=== PATIENT | male | born 1970 | race Caucasian/White ===

== ENCOUNTER 2023-12-02 23:59 | Inpatient (IN) ==
[2023-12-03] MEDS ORDERED: diazePAM 5 MG/ML 10ML VIAL IV STA ×3 (00:24→05:33)
[2023-12-03] MEDS ORDERED: THIAMINE HCL 100 MG in SYRINGE 9 ML IV STA (00:24)
[2023-12-03] MEDS ORDERED: SODIUM CHLORIDE 0.9% 1,000 ML IV ONE (00:24)
[2023-12-03] MEDS ORDERED: MULTI-VITAMIN INFUSION 10 ML, THIAMINE HCL 100 MG, FOLIC ACID 1 MG in SODIUM CHLORIDE 0... IV ONE (00:24)
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
[2023-12-03 00:50] LABS: Appearance Urine Clear (Clear); Blood Urine Negative (Negative); Color Urine Orange; Glucose Urine UA Negative (Negative); Ketones Urine 1+ (Negative); Leukocyte Esterase Urine Trace (Negative); Nitrite Urine Negative (Negative); Protein Urine 2+ (Negative); Specific Gravity Urine 1.029 (1.000-1.030); Urobilinogen Urine Negative (Negative); pH Urine 5.5 (4.5-7.5)
[2023-12-03 01:10] LABS: Bilirubin Urine 1+ (Negative)
[2023-12-03 01:19] LABS: Prothrombin Time 10.9 Seconds (9.0-12.0)
[2023-12-03 01:20] LABS: Amphetamines+Metham, Urine Neg (Neg); Barbiturates, Urine Pos (Neg); Benzodiazepine, Urine Pos (Neg); Cocaine, Urine Neg (Neg); MDMA (Ecstacy), Urine Neg (Neg); Marijuana, Urine Neg (Neg); Methadone, Urine Neg (Neg); Opiate, Urine Neg (Neg); Phencyclidine, Urine Neg (Neg)
[2023-12-03 01:21] LABS: Bacteria Urine Automated Negative (Negative); Cast Urine Automated 0 /lpf (0-5); Mucus Urine Present (None Prsent); RBC Urine Automated 0-4 /hpf (0-4)
[2023-12-03 01:29] LABS: Albumin Globulin Ratio 1.3 (0.9-2); BUN Creatinine Ratio 20.3 (10-20); Creatinine Clr Calc Pharmacy 102.5 ml/min; Est GFR (African American) 120.5 ml/min; Globulin 3.4 gm/dl (2.5-4.0); Phosphorus 3.3 mg/dl (2.5-4.9); Total Protein 7.9 gm/dl (6.0-8.3)
--- NOTE | 2023-12-03 01:29 | CT Scan Report ---
Exam(s): CT HEAD Without Contrast EXAM: CT Head Without Intravenous Contrast CLINICAL HISTORY: Reason for exam: ams. TECHNIQUE: Axial computed tomography images of the head/brain without intravenous contrast. CTDI is 35.92 mGy and DLP is 625.8 mGy-cm. Automated exposure control was utilized for the study. A dose lowering technique was utilized adhering to the principles of ALARA. COMPARISON: No relevant prior studies available. FINDINGS: No acute intracranial hemorrhage. No midline shift or mass effect. The territorial humphrey-white matter differentiation is maintained throughout. Age-related cerebral volume loss. Periventricular and subcortical white matter hypoattenuation, consistent with chronic microangiopathy. The visualized orbits appear grossly unremarkable. The calvarium is intact. The visualized paranasal sinuses and mastoid air cells are grossly clear. IMPRESSION: No acute intracranial hemorrhage, midline shift, or mass effect. Electronically signed by: Thomas Paula MD 12/03/23 01:28 AM
[2023-12-03 01:30] LABS: Albumin Level 4.5 gm/dl (3.4-5.0); Bilirubin,Total 0.8 mg/dl (0.2-1.0); Calcium 9.9 mg/dl (8.6-10.3); Magnesium 1.6 mg/dl (1.7-2.4); Potassium 3.7 mmol/L (3.5-5.1); Thyroid Stimulating Hormone 3.1 uIu/ml (0.300-4.500); Troponin I High Sensitivity 6.6 pg/ml (0-20)
[2023-12-03 01:45] LABS: Basophils # (auto) 0.04 K/uL (0.00-0.20); Eosinophils # (auto) 0.04 K/uL (0.00-0.50); Hematocrit (blood only) 44.2 % (42.0-52.0); Hemoglobin 14.8 g/dl (14.0-18.0); Immature Granulocytes # (auto) 0.01 K/uL (0.01-0.20); Immature Granulocytes % (auto) 0.3 %; Lymphocytes # (auto) 0.88 K/uL (1.20-3.40); Mean Corpuscular Hemoglobin 32.6 pg (25.0-34.0); Mean Corpuscular Hgb Conc 33.5 g/dL (32.0-36.0); Mean Corpuscular Volume 97.4 fL (80.0-100.0); Mean Platelet Volume 12.4 fL (9.4-12.4); Monocytes # (auto) 0.46 K/uL (0.11-0.59); Neutrophils % (auto) 62.7 %; Platelet Count 50 K/uL (130-400); Platelet Estimate Decreased (Normal); RBC Morphology Unremarkable; RDW Coefficient of Variation 11.5 % (11.5-14.5); RDW Standard Deviation 41.9 fL (36.4-46.3); Red Blood Count 4.54 M/uL (4.70-6.10); White Blood Count 3.83 K/ul (4.8-10.8)
[2023-12-03] MEDS ORDERED: MAGNESIUM SULFATE / D5W 1 GM/100 ML BAG IV STA (01:51)
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
[2023-12-03] MEDS ORDERED: SODIUM CHLORIDE 0.9% 1,000 ML IV SCH (05:05)
[2023-12-03] MEDS ORDERED: cloNIDine HCL 0.1 MG TAB PO PRN (05:05)
[2023-12-03] MEDS ORDERED: NITROGLYCERIN SL 0.4 MG/TAB TAB SL PRN (05:05)
[2023-12-03] MEDS ORDERED: PHENobarbital sodium 130 MG/ML VIAL IM STA ×3 (05:05→09:24)
[2023-12-03] MEDS ORDERED: ALBUTEROL 0.083% NEBU SOLN 3 ML VIAL INH PRN (05:05)
[2023-12-03] MEDS ORDERED: ONDANSETRON INJ 2 MG/ML 2 ML VIAL IV PRN (05:05)
[2023-12-03] MEDS ORDERED: PHENobarbital sodium 65 MG/ML VIAL IM PRN (05:05)
[2023-12-03] MEDS ORDERED: ALBUTEROL HFA 8 GM INHALER INH PRN (05:05)
[2023-12-03] MEDS ORDERED: PHENobarbital PO Alcohol Withdrawal PO STA (05:05)
[2023-12-03] MEDS ORDERED: PHENobarbital sodium 65 MG/ML VIAL IV STA ×2 (07:50→10:45)
--- NOTE | 2023-12-03 07:58 | XRay Report ---
XR chest 1V portable HISTORY: Altered mental status COMPARISON: None. FINDINGS: The lungs are clear. The heart is normal in size. There are calcifications within the nodul e. There are old, healed bilateral rib fractures. No pleural effusions. No pneumothorax. IMPRESSION: No acute process. ACT 112: Negative or not required by law. Electronically signed by: Leopoldo Dubose M.D. 12/03/2023 7:57 AM
[2023-12-03] MEDS ORDERED: PHENobarbital sodium 130 MG/ML VIAL IM SCH (08:15)
[2023-12-03 08:25] LABS: Basophils # (auto) 0.04 K/uL (0.00-0.20); Basophils % (auto) 0.8 %; Eosinophils # (auto) 0.14 K/uL (0.00-0.50); Eosinophils % (auto) 2.9 %; Hemoglobin 14.8 g/dl (14.0-18.0); Immature Granulocytes # (auto) 0.01 K/uL (0.01-0.20); Immature Granulocytes % (auto) 0.2 %; Lymphocytes # (auto) 1.24 K/uL (1.20-3.40); Lymphocytes % (auto) 25.8 %; Mean Corpuscular Hemoglobin 32.5 pg (25.0-34.0); Mean Corpuscular Hgb Conc 32.9 g/dL (32.0-36.0); Mean Corpuscular Volume 98.9 fL (80.0-100.0); Mean Platelet Volume 12.4 fL (9.4-12.4); Monocytes % (auto) 12.5 %; Neutrophils # (auto) 2.78 K/uL (1.40-6.50); Neutrophils % (auto) 57.8 %; Platelet Count 62 K/uL (130-400); RDW Coefficient of Variation 11.7 % (11.5-14.5); RDW Standard Deviation 42.8 fL (36.4-46.3); Red Blood Count 4.55 M/uL (4.70-6.10); White Blood Count 4.81 K/ul (4.8-10.8)
[2023-12-03 08:29] LABS: BUN Creatinine Ratio 16.4 (10-20); Calcium 9.3 mg/dl (8.6-10.3); Creatinine Clr Calc Pharmacy 132.7 ml/min; Est GFR (Non-African American) 115.6 ml/min; Potassium 3.1 mmol/L (3.5-5.1)
[2023-12-03] MEDS ORDERED: LORazepam 1 MG/1 ML SYR ED Inj Use IV STA (08:58)
[2023-12-03] MEDS ORDERED: MULTIVITAMIN TAB PO SCH (09:00)
[2023-12-03] MEDS ORDERED: THIAMINE HCL 100 MG in SYRINGE 9 ML IV SCH (09:00)
[2023-12-03] MEDS ORDERED: CYANOCOBALAMIN (B-12) 500 MCG TABLET PO SCH (09:00)
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
[2023-12-03] MEDS ORDERED: MIDAZOLAM HCL 5 MG/ML 2ML VIAL IM STA (10:01)
[2023-12-03] MEDS ORDERED: KETAMINE HCL INJ 100 MG/ML 5ML VIAL ONE (10:07)
[2023-12-03] MEDS ORDERED: Nursing to Pharmacy Communication SCH (10:15)
--- NOTE | 2023-12-03 10:26 | Critical Care Consultation ---
Date of Consultation December 03, 2023 Assessment & Plan (1) Wernicke encephalopathy: Reason Critically Ill: 53-year-old male with Warnicke's encephalopathy and acute agitated delirium requiring violent restraints secondary to striking healthcare team members PLAN: Neuro: Warnicke's encephalopathy -Patient treated with thiamine and folate during October admission: Multivitamin supplementation when able to take p.o. -Phenobarbital for alcohol withdrawal Resp: End-tidal CO2 monitoring CV: Tachycardia secondary to alcohol withdrawal -Consider propranolol and possibly clonidine when able to take p.o. Fluids/Renal: Maintenance fluids half NS with 20 of K at 80 mL Hypokalemia -20 mEq supplemented ID: Afebrile GI/Nutrition: Mild transaminitis: AST 51 -Suspect secondary to alcohol use Heme: Thrombocytopenia: Clinical history is strongly suggestive of bone marrow suppression secondary to alcohol consumption -Reticulocyte count DVT prophylaxis: Subcu Lovenox, mechanical prophylaxis contraindicated as I am concerned the patient's compliance as he would attempt to get up and be a fall risk, therefore I think chemoprophylaxis is more indicated and safer Endocrine: ICU hyperglycemia protocol Vascular access: Peripheral IVs -Attempting to replace peripheral IV in the safe setting, increasing doses of sedatives, transition to ketamine intramuscular as this should have less impact on patient's respiratory function, patient still combative unsafe to attempt to place IV. Code Status: Full code Disposition: ICU Clinical update 1115: Patient has essentially been loaded with 15 mg/kg phenobarb, patient less combative still requiring ED cuffs as he is still quite impulsive I am hopeful that we can augment with dexmedetomidine and will transition to oral phenobarbital to start tomorrow. Clinical update 1830: Patient did well with Precedex not requiring additional doses of phenobarbital at this time, it appears we have achieved symptom control. Oral taper ordered to start tomorrow. (2) Alcohol abuse: (3) Alcohol withdrawal delirium: (4) Hypokalemia: Supervising Physician Co-Signing Physician Notes I have personally spent 85 minutes of critical care time in the direct management of this patient. This is a life/limb threatening event. This includes time spent evaluating patient, direct bedside care, chart review, placing orders, interpretation of diagnostic studies, discussion with consultants, patient, and/or family members regarding treatment decisions, as well as other required patient management activities. This time is exclusive of all separately billable procedures, and teaching time and separate from and in addition to any other critical care service time. History of Present Illness Reason for Consultation: Acute agitated delirium: Delirium tremens Attending Physician: Shravan Saucedo MD History of Present Illness Patient is a 53-year-old male with an extensive past medical history of alcohol withdraw. History is obtained from prior records as patient is in acute delirium tremens acutely agitated and hallucinating. He was recently transferred from [facility] for confusion and tachycardia. His admission was on November 30. Patient was recently admitted in October to [facility] and was discharged November 21 for acute alcohol withdrawal. At that time admission drug screen was positive for methamphetamines but reportedly the patient declined drug use. Noted he was treated with phenobarbital, at the discharge summary was reported to he would drink 30 cans of beer daily this is occurred since approximately 2014. During my evaluation the patient is responding to internal stimuli and acting having active hallucination. He became combative with staff both kicking and hitting striking medical attendance. This necessitated placement in violent restraints. He pulled out his IV, accordingly we have had to treat him with high-dose sedatives intramuscularly. I have ordered the patient to be to 101 as he is in ED restraints and administered sedatives, attempting to keep a end- tidal CO2 on the patient. He had been loaded with approximately 14 mg/kg of phenobarbital and after 40 minutes from the last medication administration he was still combative, actively hallucinating, diaphoretic Allergies Allergy/AdvReac Type Severity Reaction Status Date / Time No Known Allergies Allergy Unverified 12/03/23 02:01 Home Medications Medication Instructions Recorded Confirmed Type acetaminophen 325 mg tablet 650 mg PO QID PRN .MARCELO/PAIN 12/03/23 12/03/23 History (Tylenol) albuterol sulfate 2.5 mg/3 mL 2.5 mg inhalation .BID FOR 3DAYS 12/03/23 12/03/23 History (0.083 %) solution for nebulization albuterol sulfate 2.5 mg/3 mL 2.5 mg inhalation BID PRN 12/03/23 12/03/23 History (0.083 %) solution for nebulization Shortness Of Breath Or Wheezing albuterol sulfate 90 mcg/actuation 0 inh inhalation QID PRN Shortness 12/03/23 12/03/23 History aerosol inhaler Of Breath Or Wheezing [id number]-[id number]-[id number] 250 1 tab PO DAILY PRN Migraine 12/03/23 12/03/23 History mg-250 mg-65 mg tablet (Excedrin Headache Migraine) clonidine HCl 0.1 mg tablet 0.1 mg PO HS 12/03/23 12/03/23 History clonidine HCl 0.1 mg tablet 0.1 mg PO TID PRN ANX/RESTLESS/ 12/03/23 12/03/23 History HR>/+70/ BP100/70 cyanocobalamin (vitamin B-12) 1,000 mcg PO DAILY 12/03/23 12/03/23 History 1,000 mcg tablet (Vitamin B-12) diazepam 10 mg tablet 10 mg PO .DAILY FOR 2 DAYS 12/03/23 12/03/23 History diazepam 10 mg tablet 10 mg PO .DAILY FOR 2 DAYS 12/03/23 12/03/23 History diazepam 10 mg tablet 10 mg PO .TID FOR 2 DAYS 12/03/23 12/03/23 History diazepam 10 mg tablet 10 mg PO BID 12/03/23 12/03/23 History diazepam 5 mg tablet 5 mg PO .DAILY FOR 2 DAYS 12/03/23 12/03/23 History diphenhydramine HCl 25 mg tablet 25 mg PO Q6 PRN .ALLERGIES/RASH 12/03/23 12/03/23 History (Benadryl Allergy) famotidine 20 mg tablet 20 mg PO DAILY PRN .GERD 12/03/23 12/03/23 History folic acid 1 mg tablet 1 mg PO DAILY 12/03/23 12/03/23 History gabapentin 100 mg capsule 100 mg PO TID 12/03/23 12/03/23 History hydroxyzine pamoate 50 mg capsule 50 mg PO TID PRN Anxiety 12/03/23 12/03/23 History ibuprofen 600 mg tablet 600 mg PO Q6H PRN Pain 12/03/23 12/03/23 History loratadine 10 mg tablet 10 mg PO DAILY PRN .ALLERGIES 12/03/23 12/03/23 History multivitamin 1 tab PO DAILY 12/03/23 12/03/23 History naloxone 4 mg/actuation nasal spray 4 mg intranasal DAILY PRN .OPIATE 12/03/23 12/03/23 History OD thiamine HCl (vitamin B1) 100 mg 100 mg PO DAILY 12/03/23 12/03/23 History tablet vitamin A and D 1 applic topical QID PRN IRRITATION 12/03/23 12/03/23 History Patient History Social History Smoking Status: Unknown if ever smoked Tobacco Type: Cigarettes Hx Alcohol Use: Yes Alcohol type: beer Hx Substance Use: Yes Substance Use Type Other:: Denies. Preferred Language: Vietnamese [employer] Required: No Beliefs That Will Affect Care: None Current Living Situation: Spouse Other Information That Helps Us Care for You: No Feels Safe at Home: Declines to Answer Assistive Devices: None Review of Systems Review of Systems: Unobtainable due to cognitive status Physical Exam Physical Exam: General: Agitated and delirious, gaunt in appearance Skin: Warm, diaphoretic, Head: Atraumatic Ears, nose, mouth and throat: airway patent Cardiovascular: Normal peripheral perfusion, tachycardia noted on monitor Respiratory: no respiratory distress Gastrointestinal: Non distended Musculoskeletal: No deformity Results & Data Results & Data Vital Signs (Past 12 Hours) Vital Signs Temp Pulse Pulse Resp BP BP Pulse Ox 12/03/23 06:31 12/03/23 06:05 102 H 20 138/97 12/03/23 05:51 99 12/03/23 05:51 138/97 12/03/23 05:50 100 12/03/23 04:34 91 12/03/23 04:33 143/105 H 12/03/23 04:27 99 12/03/23 04:20 86 19 95 12/03/23 04:10 88 15 97 12/03/23 04:00 85 15 99 12/03/23 04:00 127/87 12/03/23 03:50 85 13 98 12/03/23 03:40 83 14 97 12/03/23 03:30 89 17 98 12/03/23 03:21 80 13 97 12/03/23 03:21 126/92 12/03/23 03:20 82 16 97 12/03/23 03:10 77 12 97 12/03/23 03:00 82 21 98 12/03/23 03:00 128/92 12/03/23 02:50 80 16 98 12/03/23 02:45 131/95 12/03/23 02:45 83 21 98 12/03/23 02:40 79 13 96 12/03/23 02:30 83 16 98 12/03/23 02:30 133/99 12/03/23 02:30 82 16 133/99 98 12/03/23 02:20 81 14 98 12/03/23 02:15 83 11 L 98 12/03/23 02:15 138/95 12/03/23 02:15 81 12 138/95 98 12/03/23 02:10 88 19 98 12/03/23 02:09 82 12 99 12/03/23 02:09 134/99 12/03/23 02:02 93 H 13 12/03/23 02:02 137/107 H 12/03/23 02:00 92 H 14 79 L 12/03/23 02:00 83 15 134/99 99 12/03/23 01:50 83 12 100 12/03/23 01:45 86 11 L 99 12/03/23 01:45 144/97 H 12/03/23 01:40 80 12 96 12/03/23 01:30 124/90 12/03/23 01:30 79 13 97 12/03/23 01:20 81 11 L 97 12/03/23 01:15 84 13 98 12/03/23 01:15 115/86 12/03/23 01:10 85 16 97 12/03/23 01:00 117/82 12/03/23 01:00 92 H 15 96 12/03/23 00:55 94 H 18 104/74 95 12/03/23 00:54 104/74 12/03/23 00:54 93 H 14 77 L 12/03/23 00:53 103 H 18 97 12/03/23 00:40 93 H 22 94 12/03/23 00:38 96 H 22 125/88 96 12/03/23 00:25 99 H 12/03/23 00:11 36.2 C L 116 H 17 142/86 H 97 Pulse Ox O2 Del Method O2 Del Method O2 Flow Rate 12/03/23 06:31 98 Room Air 0 12/03/23 06:05 12/03/23 05:51 12/03/23 05:51 12/03/23 05:50 12/03/23 04:34 12/03/23 04:33 12/03/23 04:27 12/03/23 04:20 12/03/23 04:10 12/03/23 04:00 12/03/23 04:00 12/03/23 03:50 12/03/23 03:40 12/03/23 03:30 12/03/23 03:21 12/03/23 03:21 12/03/23 03:20 12/03/23 03:10 12/03/23 03:00 12/03/23 03:00 12/03/23 02:50 12/03/23 02:45 12/03/23 02:45 12/03/23 02:40 12/03/23 02:30 12/03/23 02:30 12/03/23 02:30 Room Air 12/03/23 02:20 12/03/23 02:15 12/03/23 02:15 12/03/23 02:15 Room Air 12/03/23 02:10 12/03/23 02:09 12/03/23 02:09 12/03/23 02:02 12/03/23 02:02 12/03/23 02:00 12/03/23 02:00 Room Air 12/03/23 01:50 12/03/23 01:45 12/03/23 01:45 12/03/23 01:40 12/03/23 01:30 12/03/23 01:30 12/03/23 01:20 12/03/23 01:15 12/03/23 01:15 12/03/23 01:10 12/03/23 01:00 12/03/23 01:00 12/03/23 00:55 Room Air 12/03/23 00:54 12/03/23 00:54 12/03/23 00:53 12/03/23 00:40 12/03/23 00:38 Room Air 12/03/23 00:25 12/03/23 00:11 Room Air Critical Care Results & Data Vital Signs (Past 12 Hours) Vital Signs Temp Pulse Pulse Resp BP BP Pulse Ox 12/03/23 09:09 117 H 12/03/23 06:31 12/03/23 06:05 102 H 20 138/97 12/03/23 05:51 99 12/03/23 05:51 138/97 12/03/23 05:50 100 12/03/23 04:34 91 12/03/23 04:33 143/105 H 12/03/23 04:27 99 12/03/23 04:20 86 19 95 12/03/23 04:10 88 15 97 12/03/23 04:00 85 15 99 12/03/23 04:00 127/87 12/03/23 03:50 85 13 98 12/03/23 03:40 83 14 97 12/03/23 03:30 89 17 98 12/03/23 03:21 80 13 97 12/03/23 03:21 126/92 12/03/23 03:20 82 16 97 12/03/23 03:10 77 12 97 12/03/23 03:00 82 21 98 12/03/23 03:00 128/92 12/03/23 02:50 80 16 98 12/03/23 02:45 131/95 12/03/23 02:45 83 21 98 12/03/23 02:40 79 13 96 12/03/23 02:30 83 16 98 12/03/23 02:30 133/99 12/03/23 02:30 82 16 133/99 98 12/03/23 02:20 81 14 98 12/03/23 02:15 83 11 L 98 12/03/23 02:15 138/95 12/03/23 02:15 81 12 138/95 98 12/03/23 02:10 88 19 98 12/03/23 02:09 82 12 99 12/03/23 02:09 134/99 12/03/23 02:02 93 H 13 12/03/23 02:02 137/107 H 12/03/23 02:00 92 H 14 79 L 12/03/23 02:00 83 15 134/99 99 12/03/23 01:50 83 12 100 12/03/23 01:45 86 11 L 99 12/03/23 01:45 144/97 H 12/03/23 01:40 80 12 96 12/03/23 01:30 124/90 12/03/23 01:30 79 13 97 12/03/23 01:20 81 11 L 97 12/03/23 01:15 84 13 98 12/03/23 01:15 115/86 12/03/23 01:10 85 16 97 12/03/23 01:00 117/82 12/03/23 01:00 92 H 15 96 12/03/23 00:55 94 H 18 104/74 95 12/03/23 00:54 104/74 12/03/23 00:54 93 H 14 77 L 12/03/23 00:53 103 H 18 97 12/03/23 00:40 93 H 22 94 12/03/23 00:38 96 H 22 125/88 96 12/03/23 00:25 99 H 12/03/23 00:11 36.2 C L 116 H 17 142/86 H 97 Pulse Ox O2 Del Method O2 Del Method O2 Flow Rate 12/03/23 09:09 12/03/23 06:31 98 Room Air 0 12/03/23 06:05 12/03/23 05:51 12/03/23 05:51 12/03/23 05:50 12/03/23 04:34 12/03/23 04:33 12/03/23 04:27 12/03/23 04:20 12/03/23 04:10 12/03/23 04:00 12/03/23 04:00 12/03/23 03:50 12/03/23 03:40 12/03/23 03:30 12/03/23 03:21 12/03/23 03:21 12/03/23 03:20 12/03/23 03:10 12/03/23 03:00 12/03/23 03:00 12/03/23 02:50 12/03/23 02:45 12/03/23 02:45 12/03/23 02:40 12/03/23 02:30 12/03/23 02:30 12/03/23 02:30 Room Air 12/03/23 02:20 12/03/23 02:15 12/03/23 02:15 12/03/23 02:15 Room Air 12/03/23 02:10 12/03/23 02:09 12/03/23 02:09 12/03/23 02:02 12/03/23 02:02 12/03/23 02:00 12/03/23 02:00 Room Air 12/03/23 01:50 12/03/23 01:45 12/03/23 01:45 12/03/23 01:40 12/03/23 01:30 12/03/23 01:30 12/03/23 01:20 12/03/23 01:15 12/03/23 01:15 12/03/23 01:10 12/03/23 01:00 12/03/23 01:00 12/03/23 00:55 Room Air 12/03/23 00:54 12/03/23 00:54 12/03/23 00:53 12/03/23 00:40 12/03/23 00:38 Room Air 12/03/23 00:25 12/03/23 00:11 Room Air Lab & Micro Results (Past 24 Hours) RBC 4.55 M/uL (4.70-6.10) L 12/03/23 WBC 4.81 K/ul (4.8-10.8) 12/03/23 Hgb 14.8 g/dl (14.0-18.0) 12/03/23 Hct 45.0 % (42.0-52.0) 12/03/23 MCV 98.9 fL (80.0-100.0) 12/03/23 MCH 32.5 pg (25.0-34.0) 12/03/23 MCHC 32.9 g/dL (32.0-36.0) 12/03/23 RDW Standard Deviation 42.8 fL (36.4-46.3) 12/03/23 RDW Coefficient of Variation 11.7 % (11.5-14.5) 12/03/23 Plt Count 62 K/uL (130-400) L 12/03/23 MPV 12.4 fL (9.4-12.4) 12/03/23 Neutrophils (%) (Auto) 57.8 % 12/03/23 Lymphocytes (%) (Auto) 25.8 % 12/03/23 Monocytes # (Auto) 0.60 K/uL (0.11-0.59) H 12/03/23 Eosinophils # (Auto) 0.14 K/uL (0.00-0.50) 12/03/23 Immature Granulocyte % (Auto) 0.2 % 12/03/23 Neutrophils # (Auto) 2.78 K/uL (1.40-6.50) 12/03/23 Lymphocytes # (Auto) 1.24 K/uL (1.20-3.40) 12/03/23 Monocytes # (Auto) 0.60 K/uL (0.11-0.59) H 12/03/23 Eosinophils # (Auto) 0.14 K/uL (0.00-0.50) 12/03/23 Basophils # (Auto) 0.04 K/uL (0.00-0.20) 12/03/23 Immature Granulocyte # (Auto) 0.01 K/uL (0.01-0.20) 4 Red Blood Cell Morphology Unremarkable 12/03/23 Na 138 mmol/L (136-145) 12/03/23 K 3.1 mmol/L (3.5-5.1) L 12/03/23 Cl 105 mmol/L (98-107) 12/03/23 CO2 23 mmol/L (21-32) 12/03/23 Anion Gap 10 (3-11) 12/03/23 BUN 10 mg/dl (6-23) 12/03/23 Creatinine 0.61 mg/dl (0.6-1.4) 12/03/23 Estimated GFR ( Amer) 134.0 ml/min 12/03/23 Estimated GFR (Non-Af Amer) 115.6 ml/min 12/03/23 BUN/Creatinine Ratio 16.4 (10-20) 12/03/23 Glu 82 mg/dl (70-99(Fasting)) 12/03/23 Ca 9.3 mg/dl (8.6-10.3) 12/03/23 Phosphorus Level 3.3 mg/dl (2.5-4.9) 12/03/23 Total Bilirubin 0.8 mg/dl (0.2-1.0) 12/03/23 AST 51 U/L (13-39) H 12/03/23 ALT 32 U/L (7-52) 12/03/23 Alkaline Phosphatase 102 U/L (34-104) 12/03/23 TP 7.9 gm/dl (6.0-8.3) 12/03/23 Albumin 4.5 gm/dl (3.4-5.0) 12/03/23 Globulin 3.4 gm/dl (2.5-4.0) 12/03/23 Albumin/Globulin Ratio 1.3 (0.9-2) 12/03/23 Mg 2.0 mg/dl (1.7-2.4) 12/03/23 07:25 Calcium Level 9.3 mg/dl (8.6-10.3) 12/03/23 07:25 Prothromb Time International Ratio 1.0 (0.9-1.1) 12/03/23 00:2 5 Diagnostic Findings (Past 24 Hours) Chest X-Ray 12/03/23 00:24 XR chest 1V portable HISTORY: Altered mental status COMPARISON: None. FINDINGS: The lungs are clear. The heart is normal in size. There are calcifications within the nodule. There are old, healed bilateral rib fractures. No pleural effusions. No pneumothorax. IMPRESSION: No acute process. ACT 112: Negative or not required by law. Electronically signed by: Leopoldo Dubose M.D. 12/03/2023 7:[address] 12/03/23 00:24 Exam(s): CT HEAD Without Contrast EXAM: CT Head Without Intravenous Contrast CLINICAL HISTORY: Reason for exam: ams. TECHNIQUE: Axial computed tomography images of the head/brain without intravenous contrast. CTDI is 35.92 mGy and DLP is 625.8 mGy-cm. Automated exposure control was utilized for the study. A dose lowering technique was utilized adhering to the principles of ALARA. COMPARISON: No relevant prior studies available. FINDINGS: No acute intracranial hemorrhage. No midline shift or mass effect. The territorial humphrey-white matter differentiation is maintained throughout. Age-related cerebral volume loss. Periventricular and subcortical white matter hypoattenuation, consistent with chronic microangiopathy. The visualized orbits appear grossly unremarkable. The calvarium is intact. The visualized paranasal sinuses and mastoid air cells are grossly clear. IMPRESSION: No acute intracranial hemorrhage, midline shift, or mass effect. Electronically signed by: Thomas Paula MD 12/03/23 01:28 AM I & O Totals 24 Hours 12/02/23 12/03/23 12/04/23 06:59 06:59 06:59 Intake Total 2110.2 / 1.2 Balance 2111.2 / 1.2 Cumulative 12/02/23 23:59 thru 12/03/23 06:00 Intake Total 2110.2 Balance 2111.2 RT Ventilator Mngmt (Last Documented) Ventilator Ordered Settings Respiratory Rate 20 12/03/23 06:05 Ventilator - PT Measurements Respiratory Rate 20 Coding Level of Care Code 14147 CRITICAL CARE 1ST 30-74M Additional Critical Care Time Additional 30min Critical Care Time: Yes - 46818 Diagnoses Wernicke encephalopathy E51.2 Alcohol abuse F10.10 Alcohol withdrawal delirium F10.931 Hypokalemia E87.6 Additional Codes Critical Care Time - Additional 30min Critical Care Time: Yes - 25743 ([id number])
[2023-12-03] MEDS ORDERED: KETAMINE HCL INJ 50 MG/ML 10 ML VIAL IM ONE ×2 (10:30→10:45)
[2023-12-03] MEDS ORDERED: KETAMINE HCL INJ 50 MG/ML 10 ML VIAL IV ONE (10:45)
[2023-12-03] MEDS ORDERED: STAT IV Infusion **Titration per Protocol STA ×2 (11:20→11:39)
[2023-12-03] MEDS ORDERED: PHENobarbitaL 30 MG TAB PO SCH ×2 (11:30→23:15)
[2023-12-03] MEDS ORDERED: PROPOFOL BOLUS FROM BAG IV PRN (11:39)
[2023-12-03] MEDS ORDERED: fentaNYL citrate PF 100 MCG/2 ML VIAL IV PRN (11:39)
[2023-12-03] MEDS: SODIUM CHLOR 0.45% + 20MEQ KCL 20 MEQ/1,000 ML BAG IV SCH (12:08)
[2023-12-03] MEDS: dexMEDEtomidine 200 MCG/50 ML BAG IV SCH ×4 (12:09→21:23)
[2023-12-03] MEDS: propofoL 1,000 MG/100 ML VIAL IV SCH (12:49)
[2023-12-03] MEDS: FOLIC ACID 1 MG in SYRINGE 9.8 ML IV SCH (13:14)
[2023-12-03] MEDS: POTASSIUM CHLORIDE / WTR 10 MEQ/100 ML PLCT IV SCH ×2 (13:14→14:30)
[2023-12-03] MEDS ORDERED: STAT IV/IM STA (13:36)
[2023-12-03] MEDS ORDERED: PLASMA-LYTE A 1,000 ML IV ONE (13:36)
[2023-12-03] MEDS ORDERED: CALCIUM GLUCONATE 10% 1,000 MG in SODIUM CHLOR 0.9% MINI-B 50 ML IV ONE (13:45)
--- NOTE | 2023-12-03 21:50 | Electrocardiogram Report ---
Test Reason : Blood Pressure : / mmHG Vent. Rate : 098 BPM Atrial Rate : 098 BPM P-R Int : 222 ms QRS Dur : 080 ms QT Int : 354 ms P-R-T Axes : 075 073 057 degrees QTc Int : 451 ms Sinus rhythm with 1st degree A-V block No previous ECGs available Confirmed by Bruno Sparks ([id number]) on 12/03/2023 9:50:22 PM Referred By: Tala Vásquez Confirmed By:Bruno Sparks
--- NOTE | 2023-12-03 21:51 | Electrocardiogram Report ---
Test Reason : Blood Pressure : / mmHG Vent. Rate : 061 BPM Atrial Rate : 061 BPM P-R Int : 124 ms QRS Dur : 078 ms QT Int : 400 ms P-R-T Axes : 018 053 032 degrees QTc Int : 402 ms Poor data quality, interpretation may be adversely affected Normal sinus rhythm Normal ECG When compared with ECG of 03-DEC-2023 00:20, [place] interval has decreased Vent. rate has decreased BY 37 BPM Nonspecific T wave abnormality now evident in Inferior leads Confirmed by Bruno Sparks ([id number]) on 12/03/2023 9:50:53 PM Referred By: Tala Vásquez Confirmed By:Bruno Sparks
[2023-12-04] MEDS: propofoL 1,000 MG/100 ML VIAL IV SCH (00:55)
[2023-12-04] MEDS: SODIUM CHLOR 0.45% + 20MEQ KCL 20 MEQ/1,000 ML BAG IV SCH (00:59)
[2023-12-04] MEDS: dexMEDEtomidine 200 MCG/50 ML BAG IV SCH ×3 (00:59→16:20)
[2023-12-04 05:30] LABS: Hematocrit (blood only) 38.9 % (42.0-52.0); Hemoglobin 13.3 g/dl (14.0-18.0); Mean Corpuscular Hemoglobin 33.3 pg (25.0-34.0); Mean Corpuscular Hgb Conc 34.2 g/dL (32.0-36.0); Mean Corpuscular Volume 97.3 fL (80.0-100.0); Platelet Count 56 K/uL (130-400); RDW Coefficient of Variation 11.5 % (11.5-14.5); RDW Standard Deviation 41.1 fL (36.4-46.3); Reticulocyte % 1.5 % (0.5-2.0); Reticulocytes # 0.06 10^6/uL (0.02-0.10); White Blood Count 4.93 K/ul (4.8-10.8)
[2023-12-04] MEDS: PHENobarbitaL 30 MG TAB PO SCH ×2 (05:43→15:12)
[2023-12-04 05:52] LABS: Albumin Globulin Ratio 1.3 (0.9-2); Albumin Level 3.5 gm/dl (3.4-5.0); BUN Creatinine Ratio 9.1 (10-20); Bilirubin,Total 1.1 mg/dl (0.2-1.0); Calcium 8.8 mg/dl (8.6-10.3); Creatinine Clr Calc Pharmacy 149.9 ml/min; Est GFR (African American) 139.8 ml/min; Est GFR (Non-African American) 120.7 ml/min; Globulin 2.7 gm/dl (2.5-4.0); Magnesium 1.8 mg/dl (1.7-2.4); Phosphorus 4.2 mg/dl (2.5-4.9); Potassium 3.8 mmol/L (3.5-5.1); Total Protein 6.2 gm/dl (6.0-8.3)
[2023-12-04] MEDS ORDERED: PHENobarbital sodium 130 MG/ML VIAL IV PRN (07:00)
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
[2023-12-04] MEDS: FOLIC ACID 1 MG in SYRINGE 9.8 ML IV SCH (07:48)
[2023-12-04] MEDS ORDERED: ENOXAPARIN INJ 40 MG/0.4 ML SYR SQ SCH (09:00)
[2023-12-04] MEDS ORDERED: diazePAM 5 MG TABLET PO PRN (09:40)
--- NOTE | 2023-12-04 12:10 | Billing Data ---
Date of Service December 04, 2023 Coding Level of Care Code 92912 SUB INP/OBS CARE
[2023-12-04] MEDS ORDERED: D5W AND LACTATED RINGERS 1,000 ML IV SCH (12:15)
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
[2023-12-04] MEDS ORDERED: THIAMINE HCL 100 MG in SYRINGE 9 ML IV SCH (21:00)
[2023-12-04] MEDS ORDERED: PHENobarbitaL 30 MG TAB PO SCH (23:15)
[2023-12-05] MEDS ORDERED: FOLIC ACID 1 MG TAB PO SCH (09:00)
[2023-12-05 22:43] LABS: 7-Aminoclonaz, Confirm NEGATIVE ng/mL (<25); Amobarbital, Urine Conf NEGATIVE ng/mL (<100); Butalbital, Urine NEGATIVE ng/mL (<100); Hydro-Alp Ur, GC/MS NEGATIVE ng/mL (<25); Hydroxyethylflurazepam, Conf NEGATIVE ng/mL (<50); Hydroxymidazolam Ur, GC/MS NEGATIVE ng/mL (<50); Hydroxytriazolam NEGATIVE ng/mL (<50); Lorazepam, Ur GC/MS NEGATIVE ng/mL (<50); Nordiazepam, Confirm >2000 ng/mL (<50); Oxazepam Ur, GC/MS >2000 ng/mL (<50); Pentobarbital, Urine Conf NEGATIVE ng/mL (<100); Phenobarbital, Urine 237 ng/mL (<100); Secobarbital, Urine Conf NEGATIVE ng/mL (<100); Temazepam, Confirm >2000 ng/mL (<50)
[2023-12-06] MEDS ORDERED: PHENobarbitaL 30 MG TAB PO SCH ×3 (08:00→11:15)
[2023-12-08] MEDS ORDERED: PHENobarbitaL 30 MG TAB PO SCH ×2 (09:00)
[2023-12-10] MEDS ORDERED: PHENobarbitaL 30 MG TAB PO SCH ×2 (09:00)
== END 2023-12-04 17:27 | disposition left against medical advice (07) | DRG 894 ==
LOC: ED 23:59 → SUATTDRO 12-03 03:31 → EDINP 12-03 03:31 → 1E 12-03 05:06